=== PATIENT | female | born 1930 | race Caucasian/White ===

== ENCOUNTER 2016-09-25 16:17 | Inpatient (IN) | payer OTHER ==
[~2016-09-25] VITALS: Ht 167.6 cm; Wt 105.7 kg
--- NOTE | ~2016-09-25 | H ---
[facility] [place] [address] HISTORY AND PHYSICAL Name: SONYA PAZ Room #: 308-P ADM IN M.R.#: [id number] Admission: 09/25/16 Attend Phys: Janae Alejo Discharge: Date of : 34 Report #: [id number] THIS REPORT FOR: //name// CC: Zeeshan Harper DATE OF SERVICE: 09/25/2016 ATTENDING PHYSICIAN: Shabbir Harper MD. CHIEF COMPLAINT: Abdominal pain and weight gain. HISTORY OF PRESENT ILLNESS: The patient is an 86-year-old female who was admitted from the office with abdominal distention. She said over the last few days or a week, she has gained approximately 10 pounds and feels that her abdomen is distended. She thinks this is affecting her breathing as she is having a hard time getting in deep breath. She has had no fever, chills and just diffuse discomfort of the abdomen, but no nausea, vomiting or distinct pain. She has a known history of cirrhosis of the liver. PAST MEDICAL HISTORY: COPD, irritable bowel syndrome, B12 deficiency, diabetes type 2, cirrhosis of unclear etiology, history of Aflutter, coronary artery disease, ascending aortic aneurysm about 5 cm, peripheral neuropathy, hypertension, dyslipidemia. Liver biopsy in 2002 confirmed cirrhosis. PAST SURGICAL HISTORY: Laminectomy, cholecystectomy, umbilical hernia repair and hepatic cyst excision that was benign. FAMILY HISTORY: Noncontributory. SOCIAL HISTORY: She lives with her . No chronic alcohol or tobacco use. ALLERGIES: FENTANYL and HYDROCODONE. MEDICATIONS: Lasix 40 mg twice a day, Carafate, metoprolol ER 100 mg, Diovan 40 mg, Protonix 40 mg. REVIEW OF SYSTEMS: As above. She denies headache, chest pain, nausea, vomiting, myalgias, arthralgias, syncope or fall. PHYSICAL EXAMINATION: VITAL SIGNS: Temperature 36.8, pulse 57, respirations 18, blood pressure 139/65, O2 sat 94% to 97% on room air. GENERAL: She is awake and alert, in no distress. LUNGS: Clear with no wheezing. HEART: Regular, without murmur. ABDOMEN: Distended, soft, normoactive bowel sounds. [facility] [address] [place] [address] HISTORY AND PHYSICAL Name: SONYA PAZ Room #: 308-P [facility] IN [facility].#: [id number] Admission: 09/25/16 Attend Phys: Janae Alejo Discharge: Date of : 34 Report #: [id number] EXTREMITIES: No cyanosis or clubbing, 1+ leg edema. NEUROLOGIC: Global strength 4/5 throughout. LABORATORY DATA: Revealed hemoglobin 9.6, white count is normal. Abdominal ultrasound revealed large ascites. ASSESSMENT: 1. Cirrhosis. 2. Ascites. 3. Protein calorie malnutrition, severe, albumin 2. 4. Hypertension. 5. Anemia of chronic disease. 6. History of coronary artery disease. PLAN: I have asked for a therapeutic thoracentesis with routine cell studies and fluid analysis. The chest x-ray suggesting right basilar shadows of unclear etiology. She has a history by record of ascending aortic aneurysm, so additional CT to rule out primary lung process. No plans for Lovenox DVT prophylaxis due to low platelet count. <ELECTRONICALLY SIGNED> By: Kashif Dee MD 09/26/16 1623 1038 [id number] Kashif Dee MD /nt
--- NOTE | ~2016-09-25 | CNG ---
[facility] [place] [address] CYTO-NONGYN REPORT PROCEDURE Name: TATY PAZ Room #: 308-P ADM IN M.R.#: [id number] Admission: 09/25/16 Date of : 34 Discharge: Report #: [id number] Path Case #: [id number] CYTOPATHOLOGY REPORT COLLECTION DATE: 09/27/2016 RECEIVED DATE: 09/27/2016 SUBMITTING PHYS: Dr. Zeeshan Harper OTHER PHYS: CLINICAL HISTORY: Liver Cirrhosis SPECIMEN(S) RECEIVED: A.Abdominal fluid * * * * * * * * * * * * FINAL DIAGNOSIS: A. Abdominal fluid: - No malignant cells identified. Reactive mesothelial cells and scattered predominantly chronic inflammatory cells present. PATHOLOGIST: Andressa Mayer M.D. REPORT ELECTRONICALLY SIGNED BY: Andressa Mayer M.D. DATE/TIME: 09/28/2016 11:12 * * * * * * * * * * * * GROSS PATHOLOGY: A. Abdominal fluid: The specimen is submitted unfixed, labeled "Wilma Taty Lockwood". Received by the Cytology Department is 17 mL of clear yellow fluid. One ThinPrep slide and a cell block were prepared. (mm 09.27.2016) PHOTOGRAPH RETOUCHER(S): HEATHER Corbett(ASCP)IAC INITIAL CPT CODE(S): A; 37543, 73223 Professional services performed by [facility] at [facility] [address], [place] [address] Technical services performed by [facility] at [address] [place] [address]., [address], [place] [address]. [facility] [address] [place] [address], [address] [place] [address] PHONE: [phone] [facility] [address] [place] [address] CYTO-NONGYN REPORT PROCEDURE Name: TATY PAZ Room #: 308-P ADM IN M.R.#: [id number] Admission: 09/25/16 Date of : 34 Discharge: Report #: [id number] Path Case #: [id number] DIRECTOR: Enrrique Soto M.D. * * * END OF REPORT * * *
--- NOTE | ~2016-09-25 | EKG ---
[address] [place] [address] ELECTROCARDIOGRAM REPORT Name: SONYA PAZ Room #: 308-P ADM IN M.R.#: [id number] Admission: 09/25/16 Attend Phys: Janae Alejo Discharge: Date of : 34 Report #: [id number] THIS REPORT FOR: //name// [facility] Test Date: 2016-09-25 Test Time: 19:41:37 Pat Name: SONYA PAZ Department: Room: 308 P Gender: F Child Caregiver Private Home: Janae RAM : 1930 Requested By: Zeeshan Harper Order Number: [id number] MD: Jatinder Marcos Measurements Intervals [place] Rate: 71 P: 12 ME: 175 QRS: -16 QRSD: 92 T: 93 QT: 430 QTc: 468 Interpretive Statements Sinus rhythm Borderline left axis deviation Nonspecific T abnormalities, lateral leads Compared to ECG 12/10/2015 21:05:26 T-wave abnormality now present Left ventricular hypertrophy no longer present Electronically Signed On 09-26-2016 12:51:31 CDT by Jatinder Marcos [email or web address] <ELECTRONICALLY SIGNED> By: Jatinder Marcos MD 09/26/16 1251 40 40 Jatinder Marcos MD /EPI
[~2016-09-25 16:17] MED LIST: ADVIL100 M2 PO; ALBUTEROL NEB; ALPRAZOLAM 0.50.5 M1 PO; AMITRIPTYLINE H10 M1 PO; B12INJ SUBQ; BACLOFEN 10MG T10 M1 PO; BENADRYL25 MG PO; CARAFATE 1 GM TA1 G1 PO; CARAFATE1 GM PO; CEFTIN500 MG PO; CHERATUSSIN AC118 ML PO; CONSTULOSE10 GM/152 PO; CYMBALTA30 MG PO; DIOVAN 80 MG TA80 M1 PO; DIOVAN40 MG PO; FENTANYL PA12 MCG/H1 TP; FENTANYL PA12 MCG/HR TP; FENTANYL PA25 MCG/HR TRANSDERM; FUROSEMIDE 40 M40 M1 PO; GUAIFENESIN-CODE5 ML PO; IBUPROFEN 200200 M1 PO; KLOR-CON M2020 MEQ PO; LASIX 40 MG TAB40 M2 PO; LIDODERM 5%1 PATC1 TOP; MARINOL2.5 MG PO; NEXIUM; NEXIUM20 MG PO; NEXIUM40 MG PO; NORTRIPTYLINE H25 M3 PO; ONDANSETRON HCL4 M2 PO; PERCOCET 5-3251 EACH PO; PRAVACHOL40 M1 PO; PRAVACHOL40 MG PO; PRINIVIL20 MG PO; SERTRALINE HCL25 MG PO; SPIRONOLACTONE25 M1 PO; SYMBICORT160 MCG/4. INH; TOPROL XL100 MG PO; TOPROL XL50 MG PO; TRIAMCINOLONE A80 G2 TOP; VENTOLIN HFA 1818 GM INH; VITAMIN D1000 UNI2 PO; XANAX 0.5 MG0.5 M1 PO; ZANTAC 150MG T150 M1 PO; ZOLOFT50 MG PO
[2016-09-25] MEDS ORDERED: IBUPROFEN 200200 M1 PO (17:17)
[2016-09-25] MEDS ORDERED: LACTULOSE20 GM/30 M PO (17:19)
[2016-09-25] MEDS ORDERED: LASIX 40 MG TAB40 M2 PO (17:19)
[2016-09-25] MEDS ORDERED: ONDANSETRON HCL4 M2 PO (17:20)
[2016-09-25] MEDS ORDERED: PRAVACHOL40 MG PO (17:20)
[2016-09-25] MEDS ORDERED: PROAIR RESPICL90 MCG IH (17:22)
[2016-09-25] MEDS ORDERED: B12INJ IM (17:23)
[2016-09-25] MEDS ORDERED: TRIAMCINOLONE A80 G2 TOP (17:25)
[2016-09-25 17:50] VITALS: BP 140/71
[2016-09-25 20:10] VITALS: BP 124/78
[2016-09-25 20:15] LABS: HEMOGLOBIN 9.6 gm/dL (12.0-15.0); MCH 36.4 pg (26.0-34.0); MCHC 34.3 g/dL (28.0-37.0); MCV 106.2 fL (80.0-100.0); RBC 2.63 mil/uL (4.20-5.00); RDW 17.1 % (10.5-14.5); WBC 7.3 thou/uL (4.0-11.0)
[2016-09-25 20:17] LABS: MANUAL DIFF YES; PLATELET COUNT 76 thou/uL (150-400)
[2016-09-25 20:30] LABS: CALCIUM 8.2 mg/dL (8.5-10.1); INR 1.5; POTASSIUM 4.2 mmol/L (3.5-5.1); PROTIME 15.7 Seconds (9.3-11.4); TOTAL PROTEIN 5.7 g/dL (6.4-8.2)
[2016-09-25 20:39] LABS: ABSOLUTE NEUTROPHILS 4.6 thou/uL (1.4-8.2); ANISOCYTOSIS 1+; MACROCYTES 1+; POLYCHROMASIA OCCASIONAL; TOTAL CELL COUNT 100
[2016-09-25 23:20] VITALS: BP 119/74
[2016-09-26 04:10] VITALS: BP 161/83
[2016-09-26 08:06] VITALS: BP 139/65
[2016-09-26 08:10] VITALS: BP 139/60
[2016-09-26 12:43] LABS: HEMOGLOBIN 9.8 gm/dL (12.0-15.0); MCH 36.4 pg (26.0-34.0); MCHC 33.8 g/dL (28.0-37.0); MCV 107.7 fL (80.0-100.0); RBC 2.69 mil/uL (4.20-5.00); RDW 17.3 % (10.5-14.5); WBC 5.8 thou/uL (4.0-11.0)
[2016-09-26 12:55] LABS: CALCIUM 8.5 mg/dL (8.5-10.1); POTASSIUM 3.9 mmol/L (3.5-5.1)
[2016-09-26 13:00] LABS: INR 1.5; PROTIME 15.4 Seconds (9.3-11.4)
[2016-09-26 15:59] LABS: BF NUCLEATED CELLS 171; BF RBC 539
[2016-09-26 16:00] LABS: CLARITY CLOUDY; COLOR YELLOW; TOTAL VOLUME 60 mL
[2016-09-26 16:57] LABS: BF MACROPHAGE 26; BF NEUTROPHILS 6; MANUAL DIFF YES
[2016-09-26 17:05] VITALS: BP 139/60
[2016-09-26 19:46] VITALS: BP 146/71
[2016-09-27 04:27] VITALS: BP 114/59
[2016-09-27 09:24] VITALS: BP 112/52
[2016-09-27 13:12] LABS: BODY FLUID ALBUMIN 0.3 g/dL (()); BODY FLUID AMYLASE 9 U/L (()); BODY FLUID GLUCOSE 118 mg/dL (()); BODY FLUID LDH 52 IU/L (()); BODY FLUID PROTEIN 0.9 g/dL (())
[2016-09-27 15:52] VITALS: BP 118/55
[2016-09-27 17:48] LABS: TSH 2.621 uIU/mL (0.358-3.740)
[2016-09-27 19:36] VITALS: BP 131/68
[2016-09-27 22:06] LABS: FREE T4 1.07 ng/dL (0.82-1.77)
[2016-09-28 03:28] VITALS: BP 135/71
[2016-09-28 04:08] LABS: GLYCOHEMOGLOBIN (HGB A1C) 4.3 % (4.8-5.6)
[2016-09-28 06:26] LABS: CREATININE 1.1 mg/dL (0.6-1.0); POTASSIUM 3.4 mmol/L (3.5-5.1)
[2016-09-28 09:17] VITALS: BP 123/49
[2016-09-28] MEDS ORDERED: NAMENDA 5 MG TAB5 M1 PO (11:38)
[2016-09-28 14:33] VITALS: BP 123/49
[2016-09-28 15:59] VITALS: BP 139/56
[2016-09-28 16:06] VITALS: BP 123/49
[2016-09-29 14:09] LABS: ALPHA TOCOPHEROL 7.7 mg/L (6.5-21.5)
== END 2016-09-28 17:00 | disposition home or self-care (01) | DRG 432 ==
LOC: 3N 16:17
PROVIDERS: Internal Medicine; Internal Medicine Geriatric Medicine; Psychiatry & Neurology Neurology
PROC: 0W9G3ZZ Drainage of Peritoneal Cavity, Percutaneous Approach (ICD-10-PCS; principal; 2016-09-26)
DX: K74.60 Unspecified cirrhosis of liver (principal); E43 Unspecified severe protein-calorie malnutrition; R18.8 Other ascites; I48.92 Unspecified atrial flutter; J44.9 Chronic obstructive pulmonary disease, unspecified; K58.9 Irritable bowel syndrome, unspecified; I25.10 Atherosclerotic heart disease of native coronary artery without angina pectoris; E11.42 Type 2 diabetes mellitus with diabetic polyneuropathy; I10 Essential (primary) hypertension; E78.5 Hyperlipidemia, unspecified; D63.8 Anemia in other chronic diseases classified elsewhere; F03.90 Unspecified dementia, unspecified severity, without behavioral disturbance, psychotic disturbance, mood disturbance, and anxiety; Z90.49 Acquired absence of other specified parts of digestive tract; Z88.6 Allergy status to analgesic agent; Z88.8 Allergy status to other drugs, medicaments and biological substances; Z79.899 Other long term (current) drug therapy; Z68.37 Body mass index [BMI] 37.0-37.9, adult
CPT/HCPCS: 10096

== ENCOUNTER → 2016-11-07 | Outpatient (CLI) | payer OTHER ==
[~2016-11-07] MED LIST changes: +ALBUTEROL2.5 MG/31 INH; +B12INJ IM; +LACTULOSE20 GM/30 M PO; +NAMENDA 5 MG TAB5 M1 PO; +PROAIR RESPICL90 MCG IH
== END | disposition home or self-care (01) ==
LOC: ULTRA 13:23
DX: R18.8 Other ascites (principal)

== ENCOUNTER 2016-11-21 14:08 | Emergency (ER) | payer OTHER ==
[~2016-11-21] VITALS: Ht 170.2 cm; Wt 99.8 kg
== END 2016-11-21 19:45 | disposition home or self-care (01) ==
LOC: ER 14:08
DX: R18.8 Other ascites (principal); R06.00 Dyspnea, unspecified; K74.60 Unspecified cirrhosis of liver; I10 Essential (primary) hypertension; E78.5 Hyperlipidemia, unspecified; Z98.890 Other specified postprocedural states; Z88.4 Allergy status to anesthetic agent; Z88.5 Allergy status to narcotic agent; Z88.8 Allergy status to other drugs, medicaments and biological substances

== ENCOUNTER → 2016-11-28 | Outpatient (CLI) | payer OTHER ==
[2016-11-28 10:45] LABS: HEMATOCRIT 29.6 % (37.0-47.0); HEMOGLOBIN 10.1 gm/dL (12.0-15.0); MCH 35.7 pg (26.0-34.0); MCHC 34.2 g/dL (28.0-37.0); MCV 104.5 fL (80.0-100.0); RBC 2.83 mil/uL (4.20-5.00); RDW 15.3 % (10.5-14.5); WBC 7.8 thou/uL (4.0-11.0)
[2016-11-28 10:53] LABS: INR 1.2; PROTIME 11.9 Seconds (9.3-11.4)
[2016-11-28 10:54] LABS: CALCIUM 8.8 mg/dL (8.5-10.1); CREATININE 2.5 mg/dL (0.6-1.0); POTASSIUM 4.7 mmol/L (3.5-5.1)
== END | disposition home or self-care (01) ==
LOC: SPEC 10:09
PROVIDERS: Radiology Vascular & Interventional Radiology
DX: R18.8 Other ascites (principal)